=== PATIENT | female | born 1950 | race Caucasian/White ===

== ENCOUNTER 2018-08-01 13:11 | Inpatient (IN) | payer MEDICARE, MEDICAID, SELFPAY ==
[2018-08-01] VITALS (14 sets, daily range): BP systolic 93–152; BP diastolic 30–113; PULSE 63–83; RESP 12–22; TEMP 36.4–37.3; O2SAT 94–100; BMI 47.9; BMI 46.9
--- NOTE | 2018-08-01 13:24 | EKG12_ITS ---
Test Reason : ILLNESS Blood Pressure : / mmHG Vent. Rate : 079 BPM Atrial Rate : 079 BPM P-R Int : 178 ms QRS Dur : 090 ms QT Int : 370 ms P-R-T Axes : 000 029 082 degrees QTc Int : 424 ms Atrial-paced rhythm Nonspecific ST and T wave abnormality Abnormal ECG Confirmed by WENCESLAO DOWNING, DEVORAH ([id number]), loan expeditor SELAM MOSES ([id number]) on 08/04/2018 11:42:45 AM Referred By: Misty Jane Confirmed By:DEVORAH BILLY MD
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
--- NOTE | 2018-08-01 13:35 | RAD_ITS ---
STUDY: X-RAY CHEST REASON FOR EXAM: Female, 68 years old. [place] TECHNIQUE: Single AP portable view of the chest. COMPARISON: 09/13/2016 FINDINGS: Stable appearance of a left subclavian pacemaker, EKG leads overlie the chest There are interstitial fibrotic changes of the lungs. There is no demonstrated pleural abnormality. Normal size heart. Normal mediastinum and yohannes. Normal visualized pulmonary arteries. There is atherosclerotic calcification of the aortic arch with tortuosity. There are diffuse degenerative changes of the visualized thoracic spine. 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 RAD/Chest 1 View (Portable) IMPRESSION: Degenerative changes, as described above. No demonstrated acute cardiopulmonary process. No interval change Electronically Signed: Marcus Sy MD at 13:56 EDT , Service support ,
[2018-08-01 13:49] LABS: Absolute Lymphocyte Count 0.56 X10^3/ul (0.83-4.51); Absolute Neutrophil Count 6.7 X10^3/uL (2.0-7.7); Basophil# 0.02 X10^3/uL; Basophil% 0.3 % (0-1); Eosinophil# 0.19 X10^3/uL; Eosinophils% 2.4 % (0-5); Hematocrit 30.3 % (37-47); Hemoglobin 9.4 g/dl (12.0-15.0); Lymphocyte # 0.56 X10^3/ul (4.0); Mean Corpuscular Hgb 30.8 pg (27.0-32.0); Mean Corpuscular Volume 99.3 fL (81-99); Mean Platelet Vol. 10.3 fl (6.2-12.0); Monocyte# 0.46 X10^3/uL; Monocyte% 5.8 % (0-10); Neutrophil # 6.72 X10^3/uL (2.7-7.7); Neutrophil % 84.4 % (47-70); Platelet Count 173 K/mm3 (150-450); RBC Distribution Width SD 57.7 fl (35.1-43.9); Red Blood Count 3.05 M/mm3 (4.2-5.4)
[2018-08-01 13:50] LABS: Differential Indicated SCAN CRITERIA MET; POSITIVE COUNT NO; POSITIVE DIFFERENTIAL YES; POSITIVE MORPHOLOGY NO
[2018-08-01 13:56] LABS: International Normalized Ratio 1.9; Prothrombin Time (Protime)PT. 21.6 SECONDS (11.7-14.9)
[2018-08-01 14:03] LABS: ALB/GLOB Ratio 0.6 RATIO (0.9-2.4); AST(SGOT) 189 U/L (15-37); Alanine Aminotransfer ALT/SGPT 152 U/L (13-56); Albumin, Serum 2.6 g/dL (3.2-5.0); Alkaline Phosphatase 460 U/L (45-117); Anion Gap 7 (5-15); BUN 47 mg/dL (7-18); BUN/Creat Ratio 13.8 RATIO (10-20); Calcium,Total 9.1 mg/dL (8.5-10.1); Chloride 98 mmol/L (98-107); Creatinine, Serum 3.41 mg/dL (0.55-1.02); EST Glomerular Filtration Rate 14 mL/min (>60); Est Glom Filt Rate - Afr Amer 17 mL/min (>60); Globulin 4.4 g/dL (2.2-4.2); Glucose 215 mg/dL (74-106); Potassium 4.1 mmol/L (3.5-5.1); Sodium Level 135 mmol/L (136-145)
[2018-08-01 14:11] LABS: Mucous, Urine 0 SEEN /hpf (<or=2+); Squamous Epithelial Cells - UA 0 SEEN /hpf (5-10)
[2018-08-01 14:14] LABS: Lactic Acid 1.4 mmol/L (0.4-2.0)
[2018-08-01 14:16] LABS: Color, Urine Yellow (Yellow); Glucose, Dipstick 250 mg/dl (Normal); Ketone-Dipstick 5 mg/dl (Negative); Leukocyte Esterase-Dipstick 25 /ul (Negative); Nitrite-Dipstick Negative (Negative); Occult Blood-Urine 50 /ul (Negative); Protein-Dipstick 500 mg/dl (Negative); Urine Bilirubin Dipstick Negative (Negative); Urine Clarity Sl. Cloudy (Clear); Urine Urobilinogen Normal (Normal)
[2018-08-01 14:16] LABS: Base Excess 2 mmol/L (-2 to +2); Bicarbonate 28.3 mmol/L (22-26); Blood Gas Specimen Type ART; O2 Delivery Device Room Air; PO2 38 mmHG (75-100); SITE L Brachial; SO2 63 % (95-99); Time Given 1403; Total Carbon Dioxide 30 mmol/L; pCO2 58.9 mmHg (35-45); pH 7.29 (7.35-7.45)
[2018-08-01 14:31] LABS: Red Blood Cells-Urine 0-5 SEEN /hpf (0-5); White Blood Cells 0-5 SEEN /hpf (0-5)
[2018-08-01 14:32] LABS: Amorphous Sediment 2+; Bacteria 2+ /hpf (None Seen)
[2018-08-01 14:46] LABS: Base Excess 2 mmol/L (-2 to +2); Bicarbonate 28.3 mmol/L (22-26); Blood Gas Specimen Type ART; O2 Delivery Device Nasal Can; PO2 89 mmHG (75-100); SITE L Radial; SO2 95 % (95-99); Time Given 1439; Total Carbon Dioxide 30 mmol/L; pCO2 58.3 mmHg (35-45)
[2018-08-01] MEDS: Ceftriaxone 1 GM/50 ML BAG IV (15:58)
--- NOTE | 2018-08-01 16:18 | PCM.HP.STD ---
Problem List (1) Acute respiratory failure with hypoxia and hypercapnia Status: Acute (2) Anemia in chronic illness Status: Chronic (3) Liver transplant recipient Status: Chronic (4) COPD exacerbation Status: Acute (5) ESRD (end stage renal disease) on dialysis Status: Chronic (6) Abnormal nuclear stress test Status: Resolved (7) Aortic ejection murmur Status: Chronic History of Present Illness Date of Admission: 08/01/18 Chief Complaint: Lethargy. The patient is a 68 year old F who presents to the Emergency Room from SNF due to lethargy. Patient wearing BiPAP during assessment and HPI from patient is limited. at bedside reports he was visiting patient today and she was very lethargic and her head Falling over into her lunch tray. He reports she was recently hospitalized at outside facility due to too much fluid and low oxygen level. Patient denies urinary symptoms. Patient complains of increased shortness of breath and cough. She currently denies pain or other complaints. Per outside records, patient was discharged 07/14/[address] [facility] where she was treated for acute on chronic hypoxic respiratory failure secondary to volume overload and COPD exacerbation, elevated troponin. Her other past medical history includes end-stage renal disease on hemodialysis, tobacco dependence, hypertension, hyperlipidemia, type 2 diabetes mellitus, chronic hypoxic respiratory failure, status post liver transplant, morbid obesity, GERD, paroxysmal atrial fibrillation, depression, hypothyroidism, status post pacemaker placement. Past Medical History Past Medical History (Chronic Problems): Chronic Problems Anemia in chronic illness (Chronic) Liver transplant recipient (Chronic) ESRD (end stage renal disease) on dialysis (Chronic) Aortic ejection murmur (Chronic) Allergies aspirin Adverse Reaction (Verified 08/01/18 13:12) Nausea Home Medications: Ambulatory Orders Medication Instructions Recorded Acetaminophen 2 tab PO Q6H PRN 08/01/18 Albuterol IH (ProAir) [Proair Hfa 2 puff INHALATION Q4H PRN PRN 08/01/18 (SP)Vent Pts] Atorvastatin Calcium [Lipitor] 10 mg PO DAILY 08/01/18 B Complex W-C No.20/Folic Acid 1 capsule PO DAILY 08/01/18 [Virt-Caps Softgel] Bisacodyl [Dulcolax] 10 mg RECTAL Q8H PRN 08/01/18 Calcium Acetate 2 capsule PO DAILY 08/01/18 Calcium Carb/Magnesium Hydrox 1 - 2 tab PO 4X/DAY PRN 08/01/18 [Antacid Chewable Tablet] Cholecalciferol (VIT D3) [Vitamin 1,000 unit PO DAILY 08/01/18 D] Dextrose [Glutose 15] 1 applicatio PO PRN PRN 08/01/18 DiphenhydrAMINE [Benadryl] 0.5 tab PO Q6H PRN 08/01/18 Docusate Sodium [Colace] 100 mg PO BID 08/01/18 Escitalopram Oxalate [Lexapro] 5 mg PO QHS 08/01/18 Fexofenadine HCl 60 mg PO QHS 08/01/18 Furosemide [Lasix] 40 mg PO BID 08/01/18 Gabapentin [Neurontin] 300 mg PO BID 08/01/18 Gabapentin [Neurontin] 400 mg PO QHS 08/01/18 Glucagon,Human Recombinant 1 dose SQ PRN PRN 08/01/18 [Glucagon Emergency Kit] Insulin Aspart [Novolog Flexpen 8 units SC BIDCM 08/01/18 ([facility])] Insulin Detemir [Levemir] 17 unit SQ QHS 08/01/18 Ipratropium/Albuterol Sulfate 3 ml INHALATION Q4H.RT PRN 08/01/18 [Duoneb] Levothyroxine Sodium 200 mcg PO DAILY 08/01/18 Lidocaine/Prilocaine [Agoneaze 1 each TP TUTA 08/01/18 2.5%-2.5% Cream Dress] Loratadine 10 mg PO DAILY 08/01/18 Melatonin 3 mg PO QHS 08/01/18 Midodrine HCl 10 mg PO TUTHSA 08/01/18 Multivitamin [Multivitamins] 1 each PO DAILY 08/01/18 Nicotine [Nicotine Patch] 1 each TD DAILY 08/01/18 Nystatin [Nyamyc] 100,000 units TP BID 08/01/18 Ondansetron [Zofran Odt] 4 mg PO Q6H PRN PRN 08/01/18 Oxycodone HCl 5 mg PO 4X/DAY 08/01/18 Pantoprazole Sodium 40 mg PO LUNCH 08/01/18 Paroxetine [Paxil] 10 mg PO DAILY 08/01/18 Polyethylene Glycol 3350 [Clearlax] 17 gm PO DAILY PRN 08/01/18 Senna [Senokot] 2 tablet PO DAILY 08/01/18 Warfarin [Coumadin ([facility])] 1 mg PO MOTUWETHFR 08/01/18 Warfarin [Coumadin ([facility])] 3 mg PO SUSA 08/01/18 Surgical History: appendectomy, cholecystectomy, hysterectomy, - - Fistula placement Psychiatric History: Depression WOOD BORER History: No pertinent WOOD BORER history Lives: Shelter Smoking Status: Current every day smoker Alcohol: None - Per Drugs: None - *Family History Maternal History Items: - - Patient denies known maternal medical history including cardiac history. Paternal History Items: - - Denies known paternal medical history including cardiac history. Review of Systems Constitutional: Reports: Fatigue, - - Lethargy. Denies: Chills, Fever, Weight Change HEENT: Denies: Head Aches, Sinus Congestion, Sinus Drainage Cardiovascular: Denies: Chest Pain, Edema, Palpitations, Syncope Respiratory: Reports: Cough, Shortness of Breath. Denies: Sputum production Gastrointestinal: Denies: Abdominal Pain, Nausea, Vomiting Genitourinary: Denies: Dysuria Musculoskeletal: Denies: Joint Pain, Joint Tenderness Skin: Denies: Rash, Wounds Neurological: Denies: Numbness, Tingling, Focal weakness Psychiatric: Reports: Depression Hematologic/ Lymphatic: Denies: Easy Bruising, Easy Bleeding VTE Information - Inpt Only VTE Present on Admission: No VTE Mechan Device Prophylaxis: None VTE Pharm Prophylaxis ordered?: Yes Patient Problems: Active and Suspected Problems Acute respiratory failure with hypoxia and hypercapnia (Acute) COPD exacerbation (Acute) - Physical Exam General: Alert, Cooperative HEENT: Atraumatic, PERRLA, EOMI, Normocephalic Oral: Dry Mucosa Neck: Supple, No JVD, Negative Carotid Bruits Lungs: Diminished, Rhonchi, Wheezes Cardiovascular: Regular rate, Regular Rhythm, Normal S1, Normal S2, Murmur Abdomen: Bowel Sounds Present, Soft, Non Tender, Non-Distended, Obese Extremities: No clubbing, No cyanosis, No edema, Capillary Refill Less than 3 Seconds Skin: No rashes, No breakdown Musculoskeletal: No Tenderness to Palpation of Joints or Extremities Neurological: Cranial nerves II-XII grossly intact, Neuro grossly intact Psych/Mental Status: Normal Affect, Appropriate Vital Signs Temp Pulse Resp BP Pulse Ox 98.3 F 76 16 106/41 L 100 08/01/18 13:19 08/01/18 15:14 08/01/18 15:14 08/01/18 15:14 08/01/18 15:14 Oxygen Delivery Method Bi-pap Weight: 245 lb 13.047 oz Body Mass Index (BMI) 47.9 Laboratory Tests Past 24 Hrs 08/01/18 08/01/18 08/01/18 13:30 13:30 13:30 WBC 8.0 RBC 3.05 L Hgb 9.4 L Hct 30.3 L MCV 99.3 H MCH 30.8 MCHC 31.0 L RDW 16.0 H RDW Differential 57.7 H Plt Count 173 MPV 10.3 Immature Gran % (Auto) 0.100 Neut % (Auto) 84.4 H Lymph % (Auto) 7.0 L [place] % (Auto) 5.8 Eos % (Auto) 2.4 Baso % (Auto) 0.3 Absolute Neuts (auto) 6.7 Absolute Lymphs (auto) 0.56 L Total Counted Not Reportable Differential Comment COMMENT PT 21.6 H INR 1.9 Specimen Type Sample Site pH Bicarbonate Actual POC Total CO2 Base Excess O2 Saturation ABG pCO2 ABG pO2 Arash Test O2 Delivery Device Liter Flow Blood Gas Notified Whom Blood Gas Notified Time Sodium 135 L Potassium 4.1 Chloride 98 Carbon Dioxide 30.0 Anion Gap 7 BUN 47 H Creatinine 3.41 H Estim Creat Clear Calc 11.50 Est GFR (MDRD) Af Amer 17 L Est GFR (MDRD) Non-Af 14 L BUN/Creatinine Ratio 13.8 Glucose 215 H Lactic Acid Calcium 9.1 Total Bilirubin 0.30 AST 189 H ALT 152 H Alkaline Phosphatase 460 H Ammonia Troponin I 0.165 H B-Natriuretic Peptide Total Protein 7.0 Albumin 2.6 L Globulin 4.4 H Albumin/Globulin Ratio 0.6 L Urine Color Urine Clarity Urine pH Ur Specific [place] Urine Protein Urine Glucose (UA) Urine Ketones Urine Occult Blood Urine Nitrite Urine Bilirubin Urine Urobilinogen Ur Leukocyte Esterase Urine RBC Urine WBC Ur Squamous Epith Cells Amorphous Sediment Urine Bacteria Urine Mucus 08/01/18 08/01/18 08/01/18 13:30 13:30 13:50 WBC RBC Hgb Hct MCV MCH MCHC RDW RDW Differential Plt Count MPV Immature Gran % (Auto) Neut % (Auto) Lymph % (Auto) [place] % (Auto) Eos % (Auto) Baso % (Auto) Absolute Neuts (auto) Absolute Lymphs (auto) Total Counted Differential Comment PT INR Specimen Type Sample Site pH Bicarbonate Actual POC Total CO2 Base Excess O2 Saturation ABG pCO2 ABG pO2 Arash Test O2 Delivery Device Liter Flow Blood Gas Notified Whom Blood Gas Notified Time Sodium Potassium Chloride Carbon Dioxide Anion Gap BUN Creatinine Estim Creat Clear Calc Est GFR (MDRD) Af Amer Est GFR (MDRD) Non-Af BUN/Creatinine Ratio Glucose Lactic Acid 1.4 Calcium Total Bilirubin AST ALT Alkaline Phosphatase Ammonia Troponin I B-Natriuretic Peptide 475.0 H Total Protein Albumin Globulin Albumin/Globulin Ratio Urine Color Yellow Urine Clarity Sl. Cloudy Urine pH 7.0 Ur Specific [place] 1.010 Urine Protein 500 H Urine Glucose (UA) 250 H Urine Ketones 5 H Urine Occult Blood 50 H Urine Nitrite Negative Urine Bilirubin Negative Urine Urobilinogen Normal Ur Leukocyte Esterase 25 H Urine RBC 0-5 SEEN Urine WBC 0-5 SEEN Ur Squamous Epith Cells 0 SEEN Amorphous Sediment 2+ Urine Bacteria 2+ Urine Mucus 0 SEEN 08/01/18 08/01/18 08/01/18 14:05 14:42 15:55 WBC RBC Hgb Hct MCV MCH MCHC RDW RDW Differential Plt Count MPV Immature Gran % (Auto) Neut % (Auto) Lymph % (Auto) [place] % (Auto) Eos % (Auto) Baso % (Auto) Absolute Neuts (auto) Absolute Lymphs (auto) Total Counted Differential Comment PT INR Specimen Type ART ART Sample Site L Brachial L Radial pH 7.29 L 7.30 L Bicarbonate Actual 28.3 H 28.3 H POC Total CO2 30 30 Base Excess 2 2 O2 Saturation 63 L 95 ABG pCO2 58.9 H 58.3 H ABG pO2 38 L* 89 Arash Test NA O2 Delivery Device Room Air Nasal Can Liter Flow 3.0 Blood Gas Notified Whom ED MD ED Blood Gas Notified Time 1403 1439 Sodium Potassium Chloride Carbon Dioxide Anion Gap BUN Creatinine Estim Creat Clear Calc Est GFR (MDRD) Af Amer Est GFR (MDRD) Non-Af BUN/Creatinine Ratio Glucose Lactic Acid Calcium Total Bilirubin AST ALT Alkaline Phosphatase Ammonia Pending Troponin I B-Natriuretic Peptide Total Protein Albumin Globulin Albumin/Globulin Ratio Urine Color Urine Clarity Urine pH Ur Specific [place] Urine Protein Urine Glucose (UA) Urine Ketones Urine Occult Blood Urine Nitrite Urine Bilirubin Urine Urobilinogen Ur Leukocyte Esterase Urine RBC Urine WBC Ur Squamous Epith Cells Amorphous Sediment Urine Bacteria Urine Mucus Assessment/Plan All Active Problems Acute respiratory failure with hypoxia and hypercapnia (Acute) COPD exacerbation (Acute) Abnormal nuclear stress test (Resolved) 1. Acute on chronic hypoxic and hypercapnic respiratory failure secondary to suspected COPD exacerbation/Acute bronchitis- CXR without acute process. IV Solu-Medrol. Albuterol and DuoNeb aerosol. Continue BiPAP as tolerated. Continue supplement oxygen to maintain O2 sat above 90%. Send sputum for culture. Check respiratory panel. 2. Possible UTI- Urinalysis mildly abnormal. Continue IV Rocephin. Follow culture. 3. Elevated troponin-suspect demand ischemia secondary to #1. Patient's troponin were elevated at [facility] during recent admission as well. She had a cardiac catheterization in September 2016 which showed nonobstructive coronary arteries. Trend enzymes. Repeat EKG in a.m. 4. End-stage renal disease on hemodialysis- consult nephrology. Continue dialysis regimen. 5. Tobacco dependence-encourage smoking cessation. Nicotine patch. 6. Hypertension-stable, not on regimen. 7. Hyperlipidemia-continue statin. 8. Type 2 diabetes [id number] ACHS with sliding scale insulin. Continue home Levemir and NovoLog regimen. 9. Status post liver transplant-elevated liver profile. Unclear baseline. Trend CMP. Ammonia level within normal limits. 10. Morbid obesity-encourage diet lifestyle modifications. Nutrition consult. 11. GERD-continue PPI. 12. Paroxysmal atrial fibrillation-currently atrial paced. Continue Coumadin. 13. Status post pacemaker 14. Hypothyroidism-continue Synthroid regimen. Check TSH. 15. Depression-continue home Paxil, Lexapro regimen. 16. Anemia of chronic disease-at baseline, trend CBC. DVT prophylaxis-Coumadin CODE STATUS: DNR CCA This patient was seen by Kita Lizarraga NP-C under the supervision of Dr. Jane.
[2018-08-01 17:41] LABS: Magnesium 2.3 mg/dL (1.6-2.6)
[2018-08-01] MEDS: Insulin Lispro 100 UNIT/ML INSULN.PEN 8 UNIT SC (18:44)
[2018-08-01] MEDS: oxyCODONE 5 MG Tablet PO (18:45)
[2018-08-01] MEDS: Furosemide 40 MG Tablet PO (18:45)
[2018-08-01 19:01] LABS: Bedside Glucose 195 mg/dL (70-110)
[2018-08-01] MEDS: Ipratropium/Albuterol Sulfate 3 ML AMPUL.NEB INHALATION (19:34)
[2018-08-01] MEDS: Atorvastatin Calcium 10 MG Tablet PO (21:39)
[2018-08-01] MEDS: Nystatin Powder 15gm Bottle 1 APPLIC TOPICAL (21:39)
[2018-08-01 21:50] LABS: Bedside Glucose 154 mg/dL (70-110)
[2018-08-01 22:30] LABS: Bedside Glucose 162 mg/dL (70-110)
[2018-08-01 22:46] LABS: Base Excess 3 mmol/L (-2 to +2); Bicarbonate 29.2 mmol/L (22-26); Blood Gas Specimen Type ART; EPAP 6; FI02 30; IPAP 18; PO2 74 mmHG (75-100); RR 14; SITE L Brachial; SO2 92 % (95-99); Total Carbon Dioxide 31 mmol/L; pCO2 60.5 mmHg (35-45); pH 7.29 (7.35-7.45)
[2018-08-02] VITALS (18 sets, daily range): BP systolic 127–149; BP diastolic 63–101; PULSE 68–85; RESP 12–18; TEMP 36.7–37.5; O2SAT 94–100
[2018-08-02] MEDS: 0.9% NaCl Peripheral Flush Adult/Peds IV ×5 (05:18→12:04)
[2018-08-02] MEDS: Levothyroxine 100 MCG Tablet 200 MCG PO (05:25)
--- NOTE | 2018-08-02 05:55 | EKG12_ITS ---
Test Reason : AM EKG Blood Pressure : / mmHG Vent. Rate : 067 BPM Atrial Rate : 067 BPM P-R Int : 190 ms QRS Dur : 096 ms QT Int : 404 ms P-R-T Axes : 055 032 110 degrees QTc Int : 426 ms Atrial-paced rhythm ST & T wave abnormality, consider lateral ischemia Abnormal ECG Confirmed by WENCESLAO DOWNING, DEVORAH ([id number]), food expeditor SELAM MOSES ([id number]) on 08/05/2018 11:34:51 AM Referred By: Misty Jane Confirmed By:DEVORAH BILLY MD
--- NOTE | 2018-08-02 05:55 | RAD_ITS ---
STUDY: X-RAY CHEST REASON FOR EXAM: Female, 68 years old. Short of breath TECHNIQUE: AP and lateral chest COMPARISON: 08/01/2018 FINDINGS: There is mild prominence of the pulmonary vascularity. There is a cardiac pacemaker. There are small pleural effusions. There are surgical clips overlying the right lateral chest. There is mild cardiomegaly. Normal mediastinum and yohannes. . Normal visualized aortic arch and descending thoracic aorta. Normal visualized thoracic spine. There is an old nonunion fracture of the right humerus. There is no demonstrated abnormality of the visualized soft tissue structures of the upper abdomen. RAD/Chest PA and Lateral IMPRESSION: Stable mild cardiomegaly, mild pulmonary venous congestion and small pleural effusions On nonunion fracture proximal right humerus Electronically Signed: Placido Medina, at 16:04 EDT Tel , Service support ,
[2018-08-02 06:51] LABS: Bedside Glucose 274 mg/dL (70-110)
[2018-08-02] MEDS: Ipratropium/Albuterol Sulfate 3 ML AMPUL.NEB INHALATION ×4 (07:32→22:27)
[2018-08-02 08:06] LABS: Prothrombin Time (Protime)PT. 22.5 SECONDS (11.7-14.9)
[2018-08-02 08:22] LABS: AST(SGOT) 271 U/L (15-37); Alanine Aminotransfer ALT/SGPT 172 U/L (13-56); Albumin, Serum 2.4 g/dL (3.2-5.0); Alkaline Phosphatase 708 U/L (45-117); Bilirubin, Direct 0.09 mg/dL (0.00-0.30); Globulin 4.5 g/dL (2.2-4.2); Protein, Total 6.9 g/dL (6.4-8.2)
[2018-08-02] MEDS: Insulin Lispro 100 UNIT/ML INSULN.PEN 8 UNIT SC ×2 (09:52→16:42)
[2018-08-02] MEDS: Insulin Lispro 100 UNIT/ML INSULN.PEN SC ×4 (09:52→22:25)
[2018-08-02] MEDS: Multivitamins,Therapeutic Tablet 1 TABLET PO (09:56)
[2018-08-02] MEDS: Docusate Sodium 100 MG Capsule PO ×2 (09:57→22:21)
[2018-08-02] MEDS: Loratadine 10 MG Tablet PO (09:57)
[2018-08-02] MEDS: Calcium Acetate 667 MG Capsule 1334 MG PO ×3 (09:57→16:46)
[2018-08-02] MEDS: PARoxetine 10 MG Tablet PO (09:58)
[2018-08-02] MEDS: Senna Tablet 2 TABLET PO (09:58)
[2018-08-02] MEDS: Furosemide 40 MG Tablet PO ×2 (09:58→16:47)
[2018-08-02 11:51] LABS: Bedside Glucose 335 mg/dL (70-110)
[2018-08-02] MEDS: Ceftriaxone 1 GM/50 ML BAG IV (12:04)
[2018-08-02] MEDS: Pantoprazole Sodium 40 MG Tablet PO (12:04)
[2018-08-02] MEDS: Nystatin Powder 15gm Bottle 1 APPLIC TOPICAL ×2 (12:05→22:26)
[2018-08-02] MEDS: Acetaminophen 325 MG Tablet 650 MG PO ×2 (14:04→20:55)
[2018-08-02] MEDS: Gabapentin 300 MG Capsule PO (14:05)
--- NOTE | 2018-08-02 15:23 | PCM.PROGNOTE ---
<Kita Lizarraga - Last Filed: 08/02/18 15:33> Patient Problems: Active and Suspected Problems Acute respiratory failure with hypoxia and hypercapnia (Acute) COPD exacerbation (Acute) Subjective: Patient seen and examined. Mental status improved although nurse reports intermittent lethargy. at bedside. Patient reports improvement in breathing. No other current complaints. - Physical Exam General: Alert, Oriented x3, Cooperative HEENT: Atraumatic, PERRLA, EOMI, Normocephalic Neck: Supple, No JVD, Negative Carotid Bruits Lungs: Clear to auscultation, Diminished Cardiovascular: Regular rate, Regular Rhythm, Normal S1, Normal S2, No murmurs Abdomen: Bowel Sounds Present, Soft, Non Tender, Non-Distended, Obese Extremities: No clubbing, No cyanosis, No edema, Capillary Refill Less than 3 Seconds Skin: No rashes, No breakdown Musculoskeletal: No Tenderness to Palpation of Joints or Extremities Neurological: Cranial nerves II-XII grossly intact, Neuro grossly intact Psych/Mental Status: Normal Affect, Appropriate Vital Signs Temp Pulse Resp BP Pulse Ox 99.5 F H 74 16 127/68 H 98 08/02/18 09:42 08/02/18 11:22 08/02/18 11:22 08/02/18 09:42 08/02/18 11:22 Oxygen Flow Rate (L/min) 2 Oxygen Delivery Method Nasal Cannula Weight: 238 lb 15.697 oz Body Mass Index (BMI) 46.9 Intake and Output for Last 24 Hours 07/31/18 08/01/18 08/02/18 23:59 23:59 23:59 Intake Total 80 / 80 510 / 510 Output Total 0 / 0 Balance 80 / 80 510 / 510 Microbiology Past 72 Hours 08/01/18 19:35 Respiratory Panel (PCR) - Final Mucosa - Nasopharyngeal Laboratory Tests Past 24 Hrs 08/01/18 08/01/18 08/01/18 13:30 15:55 17:44 PT INR Specimen Type Sample Site pH Bicarbonate Actual POC Total CO2 Base Excess O2 Saturation O2 % ABG pCO2 ABG pO2 Arash Test Respiration Rate O2 Delivery Device EPAP IPAP Blood Gas Notified Whom Magnesium 2.3 Total Bilirubin Direct Bilirubin AST ALT Alkaline Phosphatase Ammonia 17.0 Troponin I 0.194 H Total Protein Albumin Globulin 04/26/19 04/26/19 04/27/19 20:05 22:42 07:22 PT 22.5 H INR 2.0 Specimen Type ART Sample Site L Brachial pH 7.29 L Bicarbonate Actual 29.2 H POC Total CO2 31 Base Excess 3 H O2 Saturation 92 L O2 % 30 ABG pCO2 60.5 H ABG pO2 74 L Arash Test NA Respiration Rate 14 O2 Delivery Device Bi / C PAP EPAP 6 IPAP 18 Blood Gas Notified Whom FRANCES DOWNING Magnesium Total Bilirubin Direct Bilirubin AST ALT Alkaline Phosphatase Ammonia Troponin I 0.174 H Total Protein Albumin Globulin 08/02/18 08/02/18 07:22 10:12 PT INR Specimen Type Sample Site pH Bicarbonate Actual POC Total CO2 Base Excess O2 Saturation O2 % ABG pCO2 ABG pO2 Arash Test Respiration Rate O2 Delivery Device EPAP IPAP Blood Gas Notified Whom Magnesium Total Bilirubin 0.30 Direct Bilirubin 0.09 AST 271 H ALT 172 H Alkaline Phosphatase 708 H Ammonia 14.0 Troponin I Total Protein 6.9 Albumin 2.4 L Globulin 4.5 H POC Glucose 08/02/18 08/02/18 08/01/18 11:43 06:39 22:22 POC Glucose 335 H 274 H 162 H 08/01/18 08/01/18 21:29 18:34 POC Glucose 154 H 195 H Medical Necessity - Tobacco Use Smoking Status: Current every day smoker Assessment/Plan All Active Problems Acute respiratory failure with hypoxia and hypercapnia (Acute) COPD exacerbation (Acute) Abnormal nuclear stress test (Resolved) 1. Acute on chronic hypoxic and hypercapnic respiratory failure secondary to suspected COPD exacerbation/Acute bronchitis with associated acute metabolic encephalopathy- CXR without acute process. IV Solu-Medrol. Albuterol and DuoNeb aerosol. Continue BiPAP as tolerated. Continue supplement oxygen to maintain O2 sat above 90%. Send sputum for culture. Respiratory panel negative. Repeat chest x-ray pending. Hold sedating regimen given continued intermittent lethargy. 2. Possible UTI- Urinalysis mildly abnormal. Continue IV Rocephin. Urine culture pending. 3. Elevated troponin-suspect demand ischemia secondary to #1. Patient's troponin were elevated at [facility] during recent admission as well. She had a cardiac catheterization in September 2016 which showed nonobstructive coronary arteries. EKG without ST-T changes. Troponin did not trend. 4. End-stage renal disease on hemodialysis- consult nephrology. Continue dialysis regimen. T,R, Sat. 5. Elevated liver profile-ammonia level within normal limits. Liver profile trending upwards. Obtain liver ultrasound. 6. Hypertension-stable, not on regimen. 7. Hyperlipidemia-continue statin. 8. Type 2 diabetes [id number] ACHS with sliding scale insulin. Continue home Levemir and NovoLog regimen. 9. Tobacco dependence-encourage smoking cessation. Nicotine patch. 10. Morbid obesity-encourage diet lifestyle modifications. Nutrition consult. 11. GERD-continue PPI. 12. Paroxysmal atrial fibrillation-currently atrial paced. Continue Coumadin. 13. Status post pacemaker 14. Hypothyroidism-continue Synthroid regimen. Check TSH. 15. Depression-continue home Paxil, Lexapro regimen. 16. Anemia of chronic disease-at baseline, trend CBC. DVT prophylaxis-Coumadin CODE STATUS: DNR CCA This patient was seen by Kita Lizarraga NP-C under the supervision of Dr. Bahena. <Jenifer Bahena - Last Filed: 08/02/18 15:43> - Physical Exam Vital Signs Temp Pulse Resp BP Pulse Ox 99.5 F H 78 16 127/68 H 94 08/02/18 09:42 08/02/18 15:25 08/02/18 15:25 08/02/18 09:42 08/02/18 15:25 Oxygen Flow Rate (L/min) 2 Oxygen Delivery Method Nasal Cannula Weight: 238 lb 15.697 oz Body Mass Index (BMI) 46.9 Intake and Output for Last 24 Hours 07/31/18 08/01/18 08/02/18 23:59 23:59 23:59 Intake Total 80 / 80 510 / 510 Output Total 0 / 0 Balance 80 / 80 510 / 510 Microbiology Past 72 Hours 08/01/18 19:35 Respiratory Panel (PCR) - Final Mucosa - Nasopharyngeal Laboratory Tests Past 24 Hrs 08/01/18 08/01/18 08/01/18 13:30 15:55 17:44 PT INR Specimen Type Sample Site pH Bicarbonate Actual POC Total CO2 Base Excess O2 Saturation O2 % ABG pCO2 ABG pO2 Arash Test Respiration Rate O2 Delivery Device EPAP IPAP Blood Gas Notified Whom Magnesium 2.3 Total Bilirubin Direct Bilirubin AST ALT Alkaline Phosphatase Ammonia 17.0 Troponin I 0.194 H Total Protein Albumin Globulin 08/01/18 08/01/18 08/02/18 20:05 22:42 07:22 PT 22.5 H INR 2.0 Specimen Type ART Sample Site L Brachial pH 7.29 L Bicarbonate Actual 29.2 H POC Total CO2 31 Base Excess 3 H O2 Saturation 92 L O2 % 30 ABG pCO2 60.5 H ABG pO2 74 L Arash Test NA Respiration Rate 14 O2 Delivery Device Bi / C PAP EPAP 6 IPAP 18 Blood Gas Notified Whom FRANCES DOWNING Magnesium Total Bilirubin Direct Bilirubin AST ALT Alkaline Phosphatase Ammonia Troponin I 0.174 H Total Protein Albumin Globulin 08/02/18 08/02/18 07:22 10:12 PT INR Specimen Type Sample Site pH Bicarbonate Actual POC Total CO2 Base Excess O2 Saturation O2 % ABG pCO2 ABG pO2 Arash Test Respiration Rate O2 Delivery Device EPAP IPAP Blood Gas Notified Whom Magnesium Total Bilirubin 0.30 Direct Bilirubin 0.09 AST 271 H ALT 172 H Alkaline Phosphatase 708 H Ammonia 14.0 Troponin I Total Protein 6.9 Albumin 2.4 L Globulin 4.5 H POC Glucose 08/02/18 08/02/18 08/01/18 11:43 06:39 22:22 POC Glucose 335 H 274 H 162 H 08/01/18 08/01/18 21:29 18:34 POC Glucose 154 H 195 H Assessment/Plan Patient seen by Kita Lizarraga NP-Purnima under my supervision Patient is a 68-year-old female was [facility] her [facility] by the ED with complaint of lethargy. According to her she had recently been admitted at another hospital on account of low oxygen level and to much fluid. She also had increased shortness of breath and cough on admission. She was discharged from [facility] on 07/14/2018 after being admitted for acute on chronic hypoxic respiratory failure due to COPD exacerbation, elevated troponin with fluid volume overload. She has been managed for acute on chronic hypoxic and hypercapnic respiratory failure due to COPD exacerbation. She was started on IV Solu-Medrol and breathing treatments and put on BiPAP. ABG done showed pH of 7.29 with elevated CO2. Patient seen and examined this morning. She was lethargic but was able to answer all my questions. She was eating breakfast. She denies any fever chills, lightheadedness or dizziness, chest pain, diarrhea vomiting. Review of systems otherwise negative. o/e: Vital Signs Height 4 ft 11.8 in Weight: 238 lb 15.697 oz Weight in Pounds 239.0 lbs Pulse Ox 94 Temperature 99.5 F Pulse Rate 78 Respiratory Rate 16 Blood Pressure 127/68 Blood Pressure Position Semi-Fowlers General: Alert, Oriented x3, Cooperative, ,mildly lethargic HEENT: Atraumatic, PERRLA, EOMI, Normocephalic Neck: Supple, No JVD, Negative Carotid Bruits Lungs: Clear to auscultation, Diminished; on 2L of oxygen at time of review Cardiovascular: Regular rate, Regular Rhythm, Normal S1, Normal S2, No murmurs Abdomen: Bowel Sounds Present, Soft, Non Tender, Non-Distended, Obese Extremities: No clubbing, No cyanosis, No edema, Capillary Refill Less than 3 Seconds Skin: No rashes, No breakdown Musculoskeletal: No Tenderness to Palpation of Joints or Extremities Neurological: Cranial nerves II-XII grossly intact, Neuro grossly intact Psych/Mental Status: Normal Affect, Appropriate Plan is continue BiPAP as needed as needed. Continue supplement with oxygen to maintain saturation above 90%. BNP was elevated at 495 but in light of her incisional disease on hemodialysis, BNP is no very accurate. Continue with hemodialysis Saturdays. Liver enzymes were noted to be trending upwards but ammonia is within normal limits. Will obtain a liver ultrasound for further evaluation. Continue Rocephin for UTI. Urine culture pending. Continue p.o. Lasix 40 mg twice daily. Rest of management as per JOHN Saucedo's notes which I have reviewed and endorsed. Code Visit Inpatient E&M: 20846 Subs Hosp L3
--- NOTE | 2018-08-02 15:27 | PN_ITS ---
<Kita Lizarraga - Last Filed: 08/02/18 15:33> Patient Problems: Active and Suspected Problems Acute respiratory failure with hypoxia and hypercapnia (Acute) COPD exacerbation (Acute) Subjective: Patient seen and examined. Mental status improved although nurse reports intermittent lethargy. at bedside. Patient reports improvement in breathing. No other current complaints. - Physical Exam General: Alert, Oriented x3, Cooperative HEENT: Atraumatic, PERRLA, EOMI, Normocephalic Neck: Supple, No JVD, Negative Carotid Bruits Lungs: Clear to auscultation, Diminished Cardiovascular: Regular rate, Regular Rhythm, Normal S1, Normal S2, No murmurs Abdomen: Bowel Sounds Present, Soft, Non Tender, Non-Distended, Obese Extremities: No clubbing, No cyanosis, No edema, Capillary Refill Less than 3 Seconds Skin: No rashes, No breakdown Musculoskeletal: No Tenderness to Palpation of Joints or Extremities Neurological: Cranial nerves II-XII grossly intact, Neuro grossly intact Psych/Mental Status: Normal Affect, Appropriate Vital Signs Temp Pulse Resp BP Pulse Ox 99.5 F H 74 16 127/68 H 98 08/02/18 09:42 08/02/18 11:22 08/02/18 11:22 08/02/18 09:42 08/02/18 11:22 Oxygen Flow Rate (L/min) 2 Oxygen Delivery Method Nasal Cannula Weight: 238 lb 15.697 oz Body Mass Index (BMI) 46.9 Intake and Output for Last 24 Hours 07/31/18 08/01/18 08/02/18 23:59 23:59 23:59 Intake Total 80 / 80 510 / 510 Output Total 0 / 0 Balance 80 / 80 510 / 510 Microbiology Past 72 Hours 08/01/18 19:35 Respiratory Panel (PCR) - Final Mucosa - Nasopharyngeal Laboratory Tests Past 24 Hrs 08/01/18 08/01/18 08/01/18 13:30 15:55 17:44 PT INR Specimen Type Sample Site pH Bicarbonate Actual POC Total CO2 Base Excess O2 Saturation O2 % ABG pCO2 ABG pO2 Arash Test Respiration Rate O2 Delivery Device EPAP IPAP Blood Gas Notified Whom Magnesium 2.3 Total Bilirubin Direct Bilirubin AST ALT Alkaline Phosphatase Ammonia 17.0 Troponin I 0.194 H Total Protein Albumin Globulin 04/26/19 04/26/19 04/27/19 20:05 22:42 07:22 PT 22.5 H INR 2.0 Specimen Type ART Sample Site L Brachial pH 7.29 L Bicarbonate Actual 29.2 H POC Total CO2 31 Base Excess 3 H O2 Saturation 92 L O2 % 30 ABG pCO2 60.5 H ABG pO2 74 L Arash Test NA Respiration Rate 14 O2 Delivery Device Bi / C PAP EPAP 6 IPAP 18 Blood Gas Notified Whom FRANCES DOWNING Magnesium Total Bilirubin Direct Bilirubin AST ALT Alkaline Phosphatase Ammonia Troponin I 0.174 H Total Protein Albumin Globulin 08/02/18 08/02/18 07:22 10:12 PT INR Specimen Type Sample Site pH Bicarbonate Actual POC Total CO2 Base Excess O2 Saturation O2 % ABG pCO2 ABG pO2 Arash Test Respiration Rate O2 Delivery Device EPAP IPAP Blood Gas Notified Whom Magnesium Total Bilirubin 0.30 Direct Bilirubin 0.09 AST 271 H ALT 172 H Alkaline Phosphatase 708 H Ammonia 14.0 Troponin I Total Protein 6.9 Albumin 2.4 L Globulin 4.5 H POC Glucose 08/02/18 08/02/18 08/01/18 11:43 06:39 22:22 POC Glucose 335 H 274 H 162 H 08/01/18 08/01/18 21:29 18:34 POC Glucose 154 H 195 H Medical Necessity - Tobacco Use Smoking Status: Current every day smoker Assessment/Plan All Active Problems Acute respiratory failure with hypoxia and hypercapnia (Acute) COPD exacerbation (Acute) Abnormal nuclear stress test (Resolved) 1. Acute on chronic hypoxic and hypercapnic respiratory failure secondary to castro spected COPD exacerbation/Acute bronchitis with associated acute metabolic encephalopathy- CXR without acute process. IV Solu-Medrol. Albuterol and DuoNeb aerosol. Continue BiPAP as tolerated. Continue supplement oxygen to maintain O2 sat above 90%. Send sputum for culture. Respiratory panel negative. Repeat chest x-ray pending. Hold sedating regimen given continued intermittent lethargy. 2. Possible UTI- Urinalysis mildly abnormal. Continue IV Rocephin. Urine culture pending. 3. Elevated troponin-suspect demand ischemia secondary to #1. Patient's troponin were elevated at [facility] during recent admission as well. She had a cardiac catheterization in September 2016 which showed nonobstructive coronary arteries. EKG without ST-T changes. Troponin did not trend. 4. End-stage renal disease on hemodialysis- consult nephrology. Continue dialysis regimen. T,R, Sat. 5. Elevated liver profile-ammonia level within normal limits. Liver profile trending upwards. Obtain liver ultrasound. 6. Hypertension-stable, not on regimen. 7. Hyperlipidemia-continue statin. 8. Type 2 diabetes [id number] ACHS with sliding scale insulin. Continue home Levemir and NovoLog regimen. 9. Tobacco dependence-encourage smoking cessation. Nicotine patch. 10. Morbid obesity-encourage diet lifestyle modifications. Nutrition consult. 11. GERD-continue PPI. 12. Paroxysmal atrial fibrillation-currently atrial paced. Continue Coumadin. 13. Status post pacemaker 14. Hypothyroidism-continue Synthroid regimen. Check TSH. 15. Depression-continue home Paxil, Lexapro regimen. 16. Anemia of chronic disease-at baseline, trend CBC. DVT prophylaxis-Coumadin CODE STATUS: DNR CCA This patient was seen by Kita Lizarraga NP-C under the supervision of Dr. Bahena. <Jenifer Bahena - Last Filed: 08/02/18 15:43> - Physical Exam Vital Signs Temp Pulse Resp BP Pulse Ox 99.5 F H 78 16 127/68 H 94 08/02/18 09:42 08/02/18 15:25 08/02/18 15:25 08/02/18 09:42 08/02/18 15:25 Oxygen Flow Rate (L/min) 2 Oxygen Delivery Method Nasal Cannula Weight: 238 lb 15.697 oz Body Mass Index (BMI) 46.9 Intake and Output for Last 24 Hours 07/31/18 08/01/18 08/02/18 23:59 23:59 23:59 Intake Total 80 / 80 510 / 510 Output Total 0 / 0 Balance 80 / 80 510 / 510 Microbiology Past 72 Hours 08/01/18 19:35 Respiratory Panel (PCR) - Final Mucosa - Nasopharyngeal Laboratory Tests Past 24 Hrs 08/01/18 08/01/18 08/01/18 13:30 15:55 17:44 PT INR Specimen Type Sample Site pH Bicarbonate Actual POC Total CO2 Base Excess O2 Saturation O2 % ABG pCO2 ABG pO2 Arash Test Respiration Rate O2 Delivery Device EPAP IPAP Blood Gas Notified Whom Magnesium 2.3 Total Bilirubin Direct Bilirubin AST ALT Alkaline Phosphatase Ammonia 17.0 Troponin I 0.194 H Total Protein Albumin Globulin 08/01/18 08/01/18 08/02/18 20:05 22:42 07:22 PT 22.5 H INR 2.0 Specimen Type ART Sample Site L Brachial pH 7.29 L Bicarbonate Actual 29.2 H POC Total CO2 31 Base Excess 3 H O2 Saturation 92 L O2 % 30 ABG pCO2 60.5 H ABG pO2 74 L Arash Test NA Respiration Rate 14 O2 Delivery Device Bi / C PAP EPAP 6 IPAP 18 Blood Gas Notified Whom FRANCES DOWNING Magnesium Total Bilirubin Direct Bilirubin AST ALT Alkaline Phosphatase Ammonia Troponin I 0.174 H Total Protein Albumin Globulin 08/02/18 08/02/18 07:22 10:12 PT INR Specimen Type Sample Site pH Bicarbonate Actual POC Total CO2 Base Excess O2 Saturation O2 % ABG pCO2 ABG pO2 Arash Test Respiration Rate O2 Delivery Device EPAP IPAP Blood Gas Notified Whom Magnesium Total Bilirubin 0.30 Direct Bilirubin 0.09 AST 271 H ALT 172 H Alkaline Phosphatase 708 H Ammonia 14.0 Troponin I Total Protein 6.9 Albumin 2.4 L Globulin 4.5 H POC Glucose 08/02/18 08/02/18 08/01/18 11:43 06:39 22:22 POC Glucose 335 H 274 H 162 H 08/01/18 08/01/18 21:29 18:34 POC Glucose 154 H 195 H Assessment/Plan Patient seen by Kita LOPEZ under my supervision Patient is a 68-year-old female was admitted from her [facility] facility by the ED with complaint of lethargy. According to her she had recently been admitted at another hospital on account of low oxygen level and to much fluid. She also had increased shortness of breath and cough on admission. She was discharged from [facility] on 07/14/2018 after being admitted for acute on chronic hypoxic respiratory failure due to COPD exacerbation, elevated troponin with fluid volume overload. She has been managed for acute on chronic hypoxic and hypercapnic respiratory failure due to COPD exacerbation. She was started on IV Solu-Medrol and breathing treatments and put on BiPAP. ABG done showed pH of 7.29 with elevated CO2. Patient seen and examined this morning. She was lethargic but was able to ans wer all my questions. She was eating breakfast. She denies any fever chills, lightheadedness or dizziness, chest pain, diarrhea vomiting. Review of systems otherwise negative. o/e: Vital Signs Height 4 ft 11.8 in Weight: 238 lb 15.697 oz Weight in Pounds 239.0 lbs Pulse Ox 94 Temperature 99.5 F Pulse Rate 78 Respiratory Rate 16 Blood Pressure 127/68 Blood Pressure Position Semi-Fowlers General: Alert, Oriented x3, Cooperative, ,mildly lethargic HEENT: Atraumatic, PERRLA, EOMI, Normocephalic Neck: Supple, No JVD, Negative Carotid Bruits Lungs: Clear to auscultation, Diminished; on 2L of oxygen at time of review Cardiovascular: Regular rate, Regular Rhythm, Normal S1, Normal S2, No murmurs Abdomen: Bowel Sounds Present, Soft, Non Tender, Non-Distended, Obese Extremities: No clubbing, No cyanosis, No edema, Capillary Refill Less than 3 Seconds Skin: No rashes, No breakdown Musculoskeletal: No Tenderness to Palpation of Joints or Extremities Neurological: Cranial nerves II-XII grossly intact, Neuro grossly intact Psych/Mental Status: Normal Affect, Appropriate Plan is continue BiPAP as needed as needed. Continue supplement with oxygen to maintain saturation above 90%. BNP was elevated at 495 but in light of her incisional disease on hemodialysis, BNP is no very accurate. Continue with hemodialysis Saturdays. Liver enzymes were noted to be trending upwards but ammonia is within normal limits. Will obtain a liver ultrasound for further evaluation. Continue Rocephin for UTI. Urine culture pending. Continue p.o. Lasix 40 mg twice daily. Rest of management as per JOHN Saucedo's notes which I have reviewed and endorsed. Code Visit Inpatient E&M: 63942 Subs Hosp L3
--- NOTE | 2018-08-02 16:16 | PCM.CONS.R ---
Problem List (1) ESRD (end stage renal disease) on dialysis Status: Chronic Consultation - Renal PCP/ Referring MD: Requesting physician: [] Primary care physician: Felice Peraza - History of Present Illness History of Present Illness: The patient is a 68 year old F PMH of ESRD on TTS. Pt presented with fatigue and confusion. Pt was admitted for COPD exacerbation and UTI Renal team was consulted for ESRD care while she is inpatient Pt follows with vacation sales advisor at [facility]. she could not remember his name Pt last HD session was last Confusion has resolved. breathing is stable ROS: 12 systems review is negative except some SOB [] - Allergies Allergies: Allergies aspirin Adverse Reaction (Verified 08/01/18 13:12) Nausea - Current Medications Current Medications: Current Medications Acetaminophen (Tylenol) 650 mg PO Q6H PRN PRN PRN Reason: Non-cardiac pain (mod-severe) Last Admin: 08/02/18 14:04 Dose: 650 mg Al Hydroxide/Mg Hydroxide (Mylanta Ii) 15 - 30 ml PO Q4H PRN PRN PRN Reason: INDIGESTION Albuterol Sulfate (Ventolin Aerosols) 2.5 mg INHALATION Q2H PRN PRN PRN Reason: dyspnea, wheezing Albuterol/Ipratropium (Duoneb) 3 ml INHALATION Q4HWA.RT [facility] Last Admin: 08/02/18 15:24 Dose: 3 ml Atorvastatin Calcium (Lipitor) 10 mg PO QHS [facility] Last Admin: 08/01/18 21:39 Dose: 10 mg Bisacodyl (Dulcolax) 10 mg RECTAL Q8H PRN PRN Reason: Constipation Calcium Acetate (Phoslo Gel Cap) 1,334 mg PO TIDCM [facility] Last Admin: 08/02/18 12:04 Dose: 1,334 mg Cholecalciferol (Vitamin D) 1,000 unit PO DAILY [facility] Last Admin: 08/02/18 09:58 Dose: 1,000 unit Docusate Sodium (Colace) 100 mg PO BID [facility] Last Admin: 08/02/18 09:57 Dose: 100 mg Escitalopram Oxalate (Lexapro) 5 mg PO QHS [facility] Last Admin: 08/01/18 21:50 Dose: Not Given Furosemide (Lasix) 40 mg PO BIDLX [facility] Last Admin: 08/02/18 09:58 Dose: 40 mg Gabapentin (Neurontin) 400 mg PO QHS [facility] Last Admin: 08/01/18 21:51 Dose: Not Given Gabapentin (Neurontin) 300 mg PO BID@0800,1400 [facility] Last Admin: 08/02/18 14:05 Dose: 300 mg Hydralazine HCl (Apresoline Iv) 10 mg IV Q4H PRN PRN PRN Reason: SBP > 160 Ceftriaxone Sodium (Rocephin) 1 gm in 50 mls @ 100 mls/hr IV Q24 [facility] Last Admin: 08/02/18 12:04 Dose: 100 mls/hr Insulin Glargine (Lantus (Bkc)) 17 units SC QHS [facility] Last Admin: 08/01/18 21:38 Dose: Not Given Insulin Human Lispro (Humalog Kwikpen (Bkc)) 0 unit SC ACHS [facility]; Protocol Last Admin: 08/02/18 12:04 Dose: 5 u Insulin Human Lispro (Humalog Kwikpen (Bkc)) 8 unit SC BIDCM [facility] Last Admin: 08/02/18 09:52 Dose: 8 u Levothyroxine Sodium (Synthroid) 200 mcg PO DAILY@0600 [facility] Last Admin: 08/02/18 05:25 Dose: 200 mcg Lidocaine/Prilocaine (Emla Cream W/Tegaderm) 0 gm TOPICAL [facility] Loratadine (Claritin) 10 mg PO DAILY [facility] Last Admin: 08/02/18 09:57 Dose: 10 mg Magnesium Hydroxide (Milk Of Magnesia) 30 ml PO DAILY PRN PRN Reason: Constipation Melatonin (Melatonin) 3 mg PO QHS [facility] Last Admin: 08/01/18 21:39 Dose: Not Given Methylprednisolone (Solu-Medrol) 40 mg IV Q8 [facility] Last Admin: 08/02/18 14:05 Dose: 40 mg Midodrine (Proamatine) 10 mg PO TUTA [facility] Morphine Sulfate () 1 - 2 mg IV Q4H PRN PRN PRN Reason: PAIN Multivitamins (Multivitamin) 1 tablet PO DAILY@0800 [facility] Last Admin: 08/02/18 09:56 Dose: 1 tablet Nicotine (Nicoderm Cq (Pbkc)) 14 mg TRANSDERM. DAILY [facility] Last Admin: 08/02/18 09:57 Dose: 14 mg Nitroglycerin (Nitrostat) 0.4 mg SUBLINGUAL Q5M PRN PRN Reason: CARDIAC/CHEST PAIN Nystatin (Mycostatin Powder) 1 applic TOPICAL BID [facility]; Protocol Last Admin: 08/02/18 12:05 Dose: 1 applic Ondansetron HCl (Zofran) 4 mg IV Q8H PRN PRN PRN Reason: NAUSEA/VOMITING Oxycodone HCl (Oxyir) 5 mg PO 4X/DAY PRN PRN Reason: PAIN Pantoprazole Sodium (Protonix) 40 mg PO LUNCH [facility] Last Admin: 08/02/18 12:04 Dose: 40 mg Paroxetine HCl (Paxil) 10 mg PO DAILY [facility] Last Admin: 08/02/18 09:58 Dose: 10 mg Polyethylene Glycol (Miralax) 17 gm PO DAILY PRN PRN Reason: Constipation Senna (Senokot) 2 tablet PO DAILY [facility] Last Admin: 08/02/18 09:58 Dose: 2 tablet Sodium Chloride () 5 - 15 ml IV UD PRN PRN Reason: SALINE FLUSH Last Admin: 08/02/18 12:04 Dose: 10 ml Warfarin Sodium (Coumadin (Pbkc)) 1 mg PO MoTuWeThFr@1700 [facility] Last Admin: 08/01/18 18:47 Dose: 1 mg Warfarin Sodium (Coumadin (Pbkc)) 3 mg PO SuSa@1700 [facility] - Past Medical History Past Medical History (Chronic Problems): Chronic Problems Anemia in chronic illness (Chronic) Liver transplant recipient (Chronic) ESRD (end stage renal disease) on dialysis (Chronic) Aortic ejection murmur (Chronic) - Past Surgical History Surgical History: appendectomy, cholecystectomy, hysterectomy, - - Fistula placement - Social History Smoking Status: Current every day smoker Alcohol: None - Per Drugs: None - Family History Maternal History Items: - - Patient denies known maternal medical history including cardiac history. Paternal History Items: - - Denies known paternal medical history including cardiac history. Patient Problems: Active and Suspected Problems Acute respiratory failure with hypoxia and hypercapnia (Acute) COPD exacerbation (Acute) - Physical Exam General: Alert, Oriented x3 HEENT: Atraumatic Oral: Moist Mucosa Neck: Supple, No JVD Lungs: Clear to auscultation, Normal air movement Cardiovascular: Regular rate, Regular Rhythm, Normal S1, Normal S2, Murmur Abdomen: Bowel Sounds Present, Non Tender Extremities: No clubbing, No cyanosis, Edema - +1 edema of LE Musculoskeletal: No Muscle Wasting Lymphatic: No Cervical, Supraclavicular, or Inguinal Adenopathy Neurological: Cranial nerves II-XII grossly intact, Neuro grossly intact Psych/Mental Status: Appropriate Vital Signs Temp Pulse Resp BP Pulse Ox 99.5 F H 78 16 127/68 H 94 08/02/18 09:42 08/02/18 15:25 08/02/18 15:25 08/02/18 09:42 08/02/18 15:25 Oxygen Flow Rate (L/min) 2 Oxygen Delivery Method Nasal Cannula Weight: 108.4 kg Body Mass Index (BMI) 46.9 Intake and Output for Last 24 Hours 07/31/18 08/01/18 08/02/18 23:59 23:59 23:59 Intake Total 80 / 80 510 / 510 Output Total 0 / 0 Balance 80 / 80 510 / 510 Microbiology Past 72 Hours 08/01/18 19:35 Respiratory Panel (PCR) - Final Mucosa - Nasopharyngeal Laboratory Tests Past 24 Hrs 08/01/18 08/01/18 08/01/18 13:30 15:55 17:44 PT INR Specimen Type Sample Site pH Bicarbonate Actual POC Total CO2 Base Excess O2 Saturation O2 % ABG pCO2 ABG pO2 Arash Test Respiration Rate O2 Delivery Device EPAP IPAP Blood Gas Notified Whom Magnesium 2.3 Total Bilirubin Direct Bilirubin AST ALT Alkaline Phosphatase Ammonia 17.0 Troponin I 0.194 H Total Protein Albumin Globulin 08/01/18 08/01/18 08/02/18 20:05 22:42 07:22 PT 22.5 H INR 2.0 Specimen Type ART Sample Site L Brachial pH 7.29 L Bicarbonate Actual 29.2 H POC Total CO2 31 Base Excess 3 H O2 Saturation 92 L O2 % 30 ABG pCO2 60.5 H ABG pO2 74 L Arash Test NA Respiration Rate 14 O2 Delivery Device Bi / C PAP EPAP 6 IPAP 18 Blood Gas Notified Whom FRANCES DOWNING Magnesium Total Bilirubin Direct Bilirubin AST ALT Alkaline Phosphatase Ammonia Troponin I 0.174 H Total Protein Albumin Globulin 08/02/18 08/02/18 07:22 10:12 PT INR Specimen Type Sample Site pH Bicarbonate Actual POC Total CO2 Base Excess O2 Saturation O2 % ABG pCO2 ABG pO2 Arash Test Respiration Rate O2 Delivery Device EPAP IPAP Blood Gas Notified Whom Magnesium Total Bilirubin 0.30 Direct Bilirubin 0.09 AST 271 H ALT 172 H Alkaline Phosphatase 708 H Ammonia 14.0 Troponin I Total Protein 6.9 Albumin 2.4 L Globulin 4.5 H POC Glucose 08/02/18 08/02/18 08/01/18 11:43 06:39 22:22 POC Glucose 335 H 274 H 162 H 08/01/18 08/01/18 21:29 18:34 POC Glucose 154 H 195 H Assessment/Plan All Active Problems Acute respiratory failure with hypoxia and hypercapnia (Acute) COPD exacerbation (Acute) Abnormal nuclear stress test (Resolved) 1- ESRD on TTS 2- CKD BMD 3- Anemia 4- UTI 5- COPD. Improving Plan: Will arrange for HD today for 3 hours BQ 400 DQ 600 UF 2L Continue phoslo with meals No need for OMERO for now COPD treatment and Abx or UTI as per the primary service Renal team will continue to follow Thank you for the consult Please call if any question Antoni Morgan MD
--- NOTE | 2018-08-02 16:21 | CON.PCM_ITS ---
Problem List (1) ESRD (end stage renal disease) on dialysis Status: Chronic Consultation - Renal PCP/ Referring MD: Requesting physician: [] Primary care physician: Felice Peraza - History of Present Illness History of Present Illness: The patient is a 68 year old F PMH of ESRD on TTS. Pt presented with fatigue and confusion. Pt was admitted for COPD exacerbation and UTI Renal team was consulted for ESRD care while she is inpatient Pt follows with assembler fitter at [facility]. she could not remember his name Pt last HD session was last Confusion has resolved. breathing is stable ROS: 12 systems review is negative except some SOB [] - Allergies Allergies: Allergies aspirin Adverse Reaction (Verified 08/01/18 13:12) Nausea - Current Medications Current Medications: Current Medications Acetaminophen (Tylenol) 650 mg PO Q6H PRN PRN PRN Reason: Non-cardiac pain (mod-severe) Last Admin: 08/02/18 14:04 Dose: 650 mg Al Hydroxide/Mg Hydroxide (Mylanta Ii) 15 - 30 ml PO Q4H PRN PRN PRN Reason: INDIGESTION Albuterol Sulfate (Ventolin Aerosols) 2.5 mg INHALATION Q2H PRN PRN PRN Reason: dyspnea, wheezing Albuterol/Ipratropium (Duoneb) 3 ml INHALATION Q4HWA.RT [facility] Last Admin: 08/02/18 15:24 Dose: 3 ml Atorvastatin Calcium (Lipitor) 10 mg PO QHS [facility] Last Admin: 08/01/18 21:39 Dose: 10 mg Bisacodyl (Dulcolax) 10 mg RECTAL Q8H PRN PRN Reason: Constipation Calcium Acetate (Phoslo Gel Cap) 1,334 mg PO TIDCM [facility] Last Admin: 08/02/18 12:04 Dose: 1,334 mg Cholecalciferol (Vitamin D) 1,000 unit PO DAILY [facility] Last Admin: 08/02/18 09:58 Dose: 1,000 unit Docusate Sodium (Colace) 100 mg PO BID [facility] Last Admin: 08/02/18 09:57 Dose: 100 mg Escitalopram Oxalate (Lexapro) 5 mg PO QHS [facility] Last Admin: 08/01/18 21:50 Dose: Not Given Furosemide (Lasix) 40 mg PO BIDLX [facility] Last Admin: 08/02/18 09:58 Dose: 40 mg Gabapentin (Neurontin) 400 mg PO QHS [facility] Last Admin: 08/01/18 21:51 Dose: Not Given Gabapentin (Neurontin) 300 mg PO BID@0800,1400 [facility] Last Admin: 08/02/18 14:05 Dose: 300 mg Hydralazine HCl (Apresoline Iv) 10 mg IV Q4H PRN PRN PRN Reason: SBP > 160 Ceftriaxone Sodium (Rocephin) 1 gm in 50 mls @ 100 mls/hr IV Q24 [facility] Last Admin: 08/02/18 12:04 Dose: 100 mls/hr Insulin Glargine (Lantus (Bkc)) 17 units SC QHS [facility] Last Admin: 08/01/18 21:38 Dose: Not Given Insulin Human Lispro (Humalog Kwikpen (Bkc)) 0 unit SC ACHS [facility]; Protocol Last Admin: 08/02/18 12:04 Dose: 5 u Insulin Human Lispro (Humalog Kwikpen (Bkc)) 8 unit SC BIDCM [facility] Last Admin: 08/02/18 09:52 Dose: 8 u Levothyroxine Sodium (Synthroid) 200 mcg PO DAILY@0600 [facility] Last Admin: 08/02/18 05:25 Dose: 200 mcg Lidocaine/Prilocaine (Emla Cream W/Tegaderm) 0 gm TOPICAL [facility] Loratadine (Claritin) 10 mg PO DAILY [facility] Last Admin: 08/02/18 09:57 Dose: 10 mg Magnesium Hydroxide (Milk Of Magnesia) 30 ml PO DAILY PRN PRN Reason: Constipation Melatonin (Melatonin) 3 mg PO QHS [facility] Last Admin: 08/01/18 21:39 Dose: Not Given Methylprednisolone (Solu-Medrol) 40 mg IV Q8 [facility] Last Admin: 08/02/18 14:05 Dose: 40 mg Midodrine (Proamatine) 10 mg PO TUTA [facility] Morphine Sulfate () 1 - 2 mg IV Q4H PRN PRN PRN Reason: PAIN Multivitamins (Multivitamin) 1 tablet PO DAILY@0800 [facility] Last Admin: 08/02/18 09:56 Dose: 1 tablet Nicotine (Nicoderm Cq (Pbkc)) 14 mg TRANSDERM. DAILY [facility] Last Admin: 08/02/18 09:57 Dose: 14 mg Nitroglycerin (Nitrostat) 0.4 mg SUBLINGUAL Q5M PRN PRN Reason: CARDIAC/CHEST PAIN Nystatin (Mycostatin Powder) 1 applic TOPICAL BID [facility]; Protocol Last Admin: 08/02/18 12:05 Dose: 1 applic Ondansetron HCl (Zofran) 4 mg IV Q8H PRN PRN PRN Reason: NAUSEA/VOMITING Oxycodone HCl (Oxyir) 5 mg PO 4X/DAY PRN PRN Reason: PAIN Pantoprazole Sodium (Protonix) 40 mg PO LUNCH [facility] Last Admin: 08/02/18 12:04 Dose: 40 mg Paroxetine HCl (Paxil) 10 mg PO DAILY [facility] Last Admin: 08/02/18 09:58 Dose: 10 mg Polyethylene Glycol (Miralax) 17 gm PO DAILY PRN PRN Reason: Constipation Senna (Senokot) 2 tablet PO DAILY [facility] Last Admin: 08/02/18 09:58 Dose: 2 tablet Sodium Chloride () 5 - 15 ml IV UD PRN PRN Reason: SALINE FLUSH Last Admin: 08/02/18 12:04 Dose: 10 ml Warfarin Sodium (Coumadin (Pbkc)) 1 mg PO MoTuWeThFr@1700 [facility] Last Admin: 08/01/18 18:47 Dose: 1 mg Warfarin Sodium (Coumadin (Pbkc)) 3 mg PO SuSa@1700 [facility] - Past Medical History Past Medical History (Chronic Problems): Chronic Problems Anemia in chronic illness (Chronic) Liver transplant recipient (Chronic) ESRD (end stage renal disease) on dialysis (Chronic) Aortic ejection murmur (Chronic) - Past Surgical History Surgical History: appendectomy, cholecystectomy, hysterectomy, - - Fistula placement - Social History Smoking Status: Current every day smoker Alcohol: None - Per Drugs: None - Family History Maternal History Items: - - Patient denies known maternal medical history including cardiac history. Paternal History Items: - - Denies known paternal medical history including cardiac history. Patient Problems: Active and Suspected Problems Acute respiratory failure with hypoxia and hypercapnia (Acute) COPD exacerbation (Acute) - Physical Exam General: Alert, Oriented x3 HEENT: Atraumatic Oral: Moist Mucosa Neck: Supple, No JVD Lungs: Clear to auscultation, Normal air movement Cardiovascular: Regular rate, Regular Rhythm, Normal S1, Normal S2, Murmur Abdomen: Bowel Sounds Present, Non Tender Extremities: No clubbing, No cyanosis, Edema - +1 edema of LE Musculoskeletal: No Muscle Wasting Lymphatic: No Cervical, Supraclavicular, or Inguinal Adenopathy Neurological: Cranial nerves II-XII grossly intact, Neuro grossly intact Psych/Mental Status: Appropriate Vital Signs Temp Pulse Resp BP Pulse Ox 99.5 F H 78 16 127/68 H 94 08/02/18 09:42 08/02/18 15:25 08/02/18 15:25 08/02/18 09:42 08/02/18 15:25 Oxygen Flow Rate (L/min) 2 Oxygen Delivery Method Nasal Cannula Weight: 108.4 kg Body Mass Index (BMI) 46.9 Intake and Output for Last 24 Hours 07/31/18 08/01/18 08/02/18 23:59 23:59 23:59 Intake Total 80 / 80 510 / 510 Output Total 0 / 0 Balance 80 / 80 510 / 510 Microbiology Past 72 Hours 08/01/18 19:35 Respiratory Panel (PCR) - Final Mucosa - Nasopharyngeal Laboratory Tests Past 24 Hrs 08/01/18 08/01/18 08/01/18 13:30 15:55 17:44 PT INR Specimen Type Sample Site pH Bicarbonate Actual POC Total CO2 Base Excess O2 Saturation O2 % ABG pCO2 ABG pO2 Arash Test Respiration Rate O2 Delivery Device EPAP IPAP Blood Gas Notified Whom Magnesium 2.3 Total Bilirubin Direct Bilirubin AST ALT Alkaline Phosphatase Ammonia 17.0 Troponin I 0.194 H Total Protein Albumin Globulin 08/01/18 08/01/18 08/02/18 20:05 22:42 07:22 PT 22.5 H INR 2.0 Specimen Type ART Sample Site L Brachial pH 7.29 L Bicarbonate Actual 29.2 H POC Total CO2 31 Base Excess 3 H O2 Saturation 92 L O2 % 30 ABG pCO2 60.5 H ABG pO2 74 L Arash Test NA Respiration Rate 14 O2 Delivery Device Bi / C PAP EPAP 6 IPAP 18 Blood Gas Notified Whom FRANCES DOWNING Magnesium Total Bilirubin Direct Bilirubin AST ALT Alkaline Phosphatase Ammonia Troponin I 0.174 H Total Protein Albumin Globulin 08/02/18 08/02/18 07:22 10:12 PT INR Specimen Type Sample Site pH Bicarbonate Actual POC Total CO2 Base Excess O2 Saturation O2 % ABG pCO2 ABG pO2 Arash Test Respiration Rate O2 Delivery Device EPAP IPAP Blood Gas Notified Whom Magnesium Total Bilirubin 0.30 Direct Bilirubin 0.09 AST 271 H ALT 172 H Alkaline Phosphatase 708 H Ammonia 14.0 Troponin I Total Protein 6.9 Albumin 2.4 L Globulin 4.5 H POC Glucose 08/02/18 08/02/18 08/01/18 11:43 06:39 22:22 POC Glucose 335 H 274 H 162 H 08/01/18 08/01/18 21:29 18:34 POC Glucose 154 H 195 H Assessment/Plan All Active Problems Acute respiratory failure with hypoxia and hypercapnia (Acute) COPD exacerbation (Acute) Abnormal nuclear stress test (Resolved) 1- ESRD on TTS 2- CKD BMD 3- Anemia 4- UTI 5- COPD. Improving Plan: Will arrange for HD today for 3 hours BQ 400 DQ 600 UF 2L Continue phoslo with meals No need for OMERO for now COPD treatment and Abx or UTI as per the primary service Renal team will continue to follow Thank you for the consult Please call if any question Antoni Morgan MD
[2018-08-02] MEDS: Midodrine HCl 5 MG Tablet 10 MG PO (17:25)
[2018-08-02] MEDS: Lidocaine/Prilocaine HCl 5 GM Tube TOPICAL (17:25)
[2018-08-02] MEDS: oxyCODONE 5 MG Tablet PO (17:31)
[2018-08-02 17:51] LABS: Bedside Glucose 421 mg/dL (70-110)
[2018-08-02] MEDS: Gabapentin 400 MG Capsule PO (22:21)
[2018-08-02] MEDS: Escitalopram Oxalate 10 MG Tablet 5 MG PO (22:21)
[2018-08-02] MEDS: Atorvastatin Calcium 10 MG Tablet PO (22:21)
[2018-08-02] MEDS: MELATONIN 3 MG TABLET PO (22:21)
[2018-08-02 22:35] LABS: Bedside Glucose 266 mg/dL (70-110)
[2018-08-03] VITALS (8 sets, daily range): BP systolic 121–140; BP diastolic 42–47; PULSE 67–81; RESP 16–18; TEMP 36.6–37.1; O2SAT 96–100
[2018-08-03] MEDS: oxyCODONE 5 MG Tablet PO ×2 (00:08→10:34)
[2018-08-03] MEDS: 0.9% NaCl Peripheral Flush Adult/Peds IV (05:23)
[2018-08-03] MEDS: Levothyroxine 100 MCG Tablet 200 MCG PO (05:23)
[2018-08-03] MEDS: Acetaminophen 325 MG Tablet 650 MG PO (05:23)
--- NOTE | 2018-08-03 05:31 | CPS ---
PT REFUSED BIPAP
[2018-08-03 06:41] LABS: Bedside Glucose 413 mg/dL (70-110)
[2018-08-03 07:37] LABS: Hematocrit 28.3 % (37-47); Hemoglobin 8.9 g/dl (12.0-15.0); Mean Corp Hgb Conc 31.4 g/gl (32-36); Mean Corpuscular Hgb 31.7 pg (27.0-32.0); Mean Corpuscular Volume 100.7 fL (81-99); Platelet Count 195 K/mm3 (150-450); RBC Distribution Width CV 16.1 % (11.6-14.6); RBC Distribution Width SD 58.3 fl (35.1-43.9); Red Blood Count 2.81 M/mm3 (4.2-5.4); White Blood Count 9.1 K/mm3 (4.4-11.0)
[2018-08-03 07:43] LABS: Scan Indicated on CBC? Y/N NO
[2018-08-03] MEDS: Ipratropium/Albuterol Sulfate 3 ML AMPUL.NEB INHALATION ×2 (07:48→11:14)
[2018-08-03 08:08] LABS: ALB/GLOB Ratio 0.6 RATIO (0.9-2.4); AST(SGOT) 99 U/L (15-37); Alanine Aminotransfer ALT/SGPT 118 U/L (13-56); Albumin, Serum 2.5 g/dL (3.2-5.0); Alkaline Phosphatase 580 U/L (45-117); Anion Gap 9 (5-15); BUN 39 mg/dL (7-18); BUN/Creat Ratio 12.5 RATIO (10-20); Calcium,Total 8.8 mg/dL (8.5-10.1); Chloride 99 mmol/L (98-107); Creatinine, Serum 3.13 mg/dL (0.55-1.02); EST Glomerular Filtration Rate 16 mL/min (>60); Est Glom Filt Rate - Afr Amer 19 mL/min (>60); Estimated Creatinine Clearance 29.54 ml/min; Globulin 4.3 g/dL (2.2-4.2); Glucose 426 mg/dL (74-106); Potassium 5.3 mmol/L (3.5-5.1); Protein, Total 6.8 g/dL (6.4-8.2); Sodium Level 134 mmol/L (136-145)
[2018-08-03] MEDS: Insulin Lispro 100 UNIT/ML INSULN.PEN SC ×2 (08:55→11:35)
[2018-08-03] MEDS: Insulin Lispro 100 UNIT/ML INSULN.PEN 8 UNIT SC (08:56)
[2018-08-03] MEDS: Multivitamins,Therapeutic Tablet 1 TABLET PO (08:59)
[2018-08-03] MEDS: Gabapentin 300 MG Capsule PO ×2 (09:00→11:36)
[2018-08-03] MEDS: Senna Tablet 2 TABLET PO (09:00)
[2018-08-03] MEDS: Calcium Acetate 667 MG Capsule 1334 MG PO ×2 (09:02→11:35)
[2018-08-03] MEDS: PARoxetine 10 MG Tablet PO (09:02)
[2018-08-03] MEDS: Furosemide 40 MG Tablet PO (09:02)
[2018-08-03] MEDS: Loratadine 10 MG Tablet PO (09:03)
[2018-08-03] MEDS: Docusate Sodium 100 MG Capsule PO (09:03)
[2018-08-03] MEDS: Nystatin Powder 15gm Bottle 1 APPLIC TOPICAL (09:05)
[2018-08-03] MEDS: Ceftriaxone 1 GM/50 ML BAG IV (09:09)
[2018-08-03] MEDS: Pantoprazole Sodium 40 MG Tablet PO (11:37)
[2018-08-03 11:45] LABS: Bedside Glucose 391 mg/dL (70-110)
--- NOTE | 2018-08-03 11:59 | TREXTCA.CO_ITS ---
<Kita Lizarraga - Last Filed: 08/03/18 13:25> - Diet 08/02/18 09:05 Diet: Cardiac: Calorie-Controlled Food consistency:: Mechanical Soft/Ground Liquid Consistency:: Regular/Thin Is pt able to select menu?: Yes How many daily calories?: 1800 calorie - Routine Orders/Code Status Enema Type: Fleetz Enema Frequency: Daily PRN Suppository Type: Dulcolax 10mg Suppository Frequency: Daily PRN O2 Liters per Minute: 2-4 O2 Frequency: Continuous Keep PO Greater than or Equal to (%): 90 - BIPAP 14/10 QHS and with naps. Routine Lab Work: - - BMP, CBC Daily X3 days and then Q Week. Repeat Liver Profile in 1 Week. Code Status: [facility] - Suggestions for Active Care Change Position every (hours): 2 Times a day to sit in chair: 3 - Therapies Physical Therapy: Eval and Treat Occupational Therapy: Eval and Treat Speech Therapy: Eval and Treat - Problem/Diagnosis (1) Acute respiratory failure with hypoxia and hypercapnia Status: Acute Current Visit: Yes (2) Anemia in chronic illness Status: Chronic Current Visit: No (3) COPD exacerbation Status: Acute Current Visit: Yes (4) ESRD (end stage renal disease) on dialysis Status: Chronic Current Visit: No (5) Abnormal nuclear stress test Status: Resolved Current Visit: No (6) Aortic ejection murmur Status: Chronic Current Visit: No - Allergies/Procedures Done in Hospital Allergies/Adverse Reactions: Allergies aspirin Adverse Reaction (Verified 08/01/18 13:12) Nausea Procedures: Dialysis - Type of Care/Length of Stay Estimated LOS: More Than 30 Days Type of Care Needed: Skilled Rehab Potential: Fair Prognosis: Fair - Additional Orders/Day of Discharge Additional Orders: BIPAP 14/10 QHS and with naps. If liver profile remains elevated on repeat lab in 1 week, recommend liver ultrasound. H&P will serve as current which was dated: 08/01/18 Day of Discharge: 08/03/18 - Follow Up Care Primary Care Physician: Felice Peraza [Primary Care Provider] - Please follow up with your Primary Care Physician in: 1 Week Please Follow Up With: Tho Schmidt DO When: Call for palliative care consult Please Follow Up With: Nephrology/Dialysis When: Continue as scheduled <Jenifer Bahena - Last Filed: 08/03/18 13:35> - Diet 08/02/18 09:05 Diet: Cardiac: Calorie-Controlled Food consistency:: Mechanical Soft/Ground Liquid Consistency:: Regular/Thin Is pt able to select menu?: Yes How many daily calories?: 1800 calorie
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
--- NOTE | 2018-08-03 15:15 | NURSING ---
Report called to Fay Sanchez to nurse Nancy.
[2018-08-05 03:06] LABS: HEPATITIS B SURFACE AG Negative (Negative); Hepatitis A AB, Total Negative (Negative); Hepatitis A IgM Antibody Negative (Negative); Hepatitis B Core AB IgM Negative (Negative); Hepatitis B Core Ab Total Negative (Negative); Hepatitis C Ab <0.1 s/co ratio (0.0-0.9)
[2018-08-05 17:51] LABS: Hep B Surface Antibodies Reactive (.)
== END 2018-08-03 15:36 | disposition skilled nursing facility (03) | DRG 189 ==
LOC: ED 15:36 → PCU 16:03
PROVIDERS: Nurse Practitioner Family; Admitting Provider Family Medicine; Emergency Provider Emergency Medicine; Family Provider Family Medicine; PCP Family Medicine; Referring Provider Family Medicine; Visit Provider Student in an Organized Health Care Education/Training Program
DX: J96.21 Acute and chronic respiratory failure with hypoxia (principal); N18.6 End stage renal disease; G93.41 Metabolic encephalopathy; Z94.4 Liver transplant status; J44.1 Chronic obstructive pulmonary disease with (acute) exacerbation; Z68.42 Body mass index [BMI] 45.0-49.9, adult; J44.0 Chronic obstructive pulmonary disease with (acute) lower respiratory infection; I12.0 Hypertensive chronic kidney disease with stage 5 chronic kidney disease or end stage renal disease; I24.8 Other forms of acute ischemic heart disease; I69.054 Hemiplegia and hemiparesis following nontraumatic subarachnoid hemorrhage affecting left non-dominant side; J20.9 Acute bronchitis, unspecified; Z66 Do not resuscitate; J96.22 Acute and chronic respiratory failure with hypercapnia; E66.01 Morbid (severe) obesity due to excess calories; E11.40 Type 2 diabetes mellitus with diabetic neuropathy, unspecified; Z79.4 Long term (current) use of insulin; E03.9 Hypothyroidism, unspecified; K59.09 Other constipation; I48.0 Paroxysmal atrial fibrillation; Z79.01 Long term (current) use of anticoagulants; E78.5 Hyperlipidemia, unspecified; E11.22 Type 2 diabetes mellitus with diabetic chronic kidney disease; Z99.2 Dependence on renal dialysis; D63.8 Anemia in other chronic diseases classified elsewhere; G47.33 Obstructive sleep apnea (adult) (pediatric); Z91.19 Patient's noncompliance with other medical treatment and regimen; K21.9 Gastro-esophageal reflux disease without esophagitis; Z95.0 Presence of cardiac pacemaker; F01.50 Vascular dementia, unspecified severity, without behavioral disturbance, psychotic disturbance, mood disturbance, and anxiety; E87.5 Hyperkalemia; R53.81 Other malaise; F32.9 Major depressive disorder, single episode, unspecified; F17.200 Nicotine dependence, unspecified, uncomplicated
CPT/HCPCS: 36415; 36600; 71045; 71046; 80053; 80076; 81001; 82140; 82803; 82962; 83605; 83735; 83880; 84484; 85025; 85027; 85610; 86704; 86705; 86706; 86708; 86709; 86803; 87086; 87340; 87633; 90937; 92610; 93005; 94002; 94003; 94640; 97163; 97165; 97802; 99251; 99285; 99406; P9612; A4216; G0257; G0463

== ENCOUNTER 2018-10-31 14:22 | Outpatient (RCR) | payer MEDICAID, MEDICARE, SELFPAY ==
[2018-08-01 16:43] VITALS: BMI 46.9
[2018-10-31 14:47] VITALS: BP 92/42; PULSE 88; RESP 18; TEMP 36.3; BMI 46.9
--- NOTE | 2018-10-31 14:50 | WC ---
PT HAS AN AREA RIGHT 4TH AND 5TH TOE ESCHAR AND NECTROTIC AREA NOTED. DR RUFF TALKED WITH FAMILY.
--- NOTE | 2018-10-31 14:52 | WC ---
NECROTIC AREA ON RIGHT 5HT . 4TH TOE MEASURED OF 7X5X0.1
--- NOTE | 2018-10-31 19:25 | PCM.WC.HP ---
(1) Gangrene of right foot Status: Acute Current Visit: Yes Code(s): I96 - Gangrene, not elsewhere classified (2) Acute respiratory failure with hypoxia and hypercapnia Status: Acute Current Visit: Yes Code(s): J96.01 - Acute respiratory failure with hypoxia; J96.02 - Acute respiratory failure with hypercapnia (3) ESRD (end stage renal disease) on dialysis Status: Chronic Current Visit: Yes Code(s): N18.6 - End stage renal disease; Z99.2 - Dependence on renal dialysis History of Present Illness Date of Service: 10/31/18 Chief Complaint: black toes History of Wound: Mary Beth was evaluated briefly by me with history mostly provided by her son, Chay. She was scheduled to be seen at the wound center for her right foot but there were no open wounds present. She had color changes to her last 3 digits of her right foot with mottling of the distal aspects of her feet bilaterally. She did not have any drainage or exudate present from her toes. Per her son her toes became dark purple and then black approx. 3 weeks ago and the color change has been spreading across her toes. She is on chronic dialysis and has diabetes and COPD with oxygen dependence. She has pain in her toes as well. She also has heart disease. Based on my exam, I did not feel that she would benefit from further evaluation here and recommended that she be evaluated by the ER for urgent CT angiogram and possible arterial intervention. Surgery might also be necessary but she may not be a candidate for surgery due to her comorbidities but a regional anesthetic block may be possible if surgical intervention was necessary. Her son verbalized understanding and planned to contact her aeronautical research engineer office to have them order testing and continue her care. I encouraged urgent consultation with vascular surgery but do not believe that her 5th digit is salvagable. Past Medical History Past Medical History: Chronic Problems Anemia in chronic illness (Chronic) ESRD (end stage renal disease) on dialysis (Chronic) Aortic ejection murmur (Chronic) Surgical History: appendectomy, cholecystectomy, hysterectomy, - - Fistula placement Allergies/Adverse Reactions: Allergies aspirin Adverse Reaction (Verified 10/31/18 16:45) Nausea Home Medications: Ambulatory Orders Medication Instructions Recorded Albuterol IH (ProAir) [Proair Hfa] 2 puff INHALATION Q4H PRN PRN 08/01/18 Atorvastatin Calcium [Lipitor] 10 mg PO DAILY 08/01/18 B Complex W-C No.20/Folic Acid 1 capsule PO DAILY 08/01/18 [Virt-Caps Softgel] Bisacodyl [Dulcolax] 10 mg RECTAL Q8H PRN 08/01/18 Calcium Carb/Magnesium Hydrox 1 - 2 tab PO 4X/DAY PRN 08/01/18 [Antacid Chewable Tablet] Cholecalciferol (VIT D3) [Vitamin 1,000 unit PO DAILY 08/01/18 D3] Dextrose [Glutose-15] 1 applicatio PO PRN PRN 08/01/18 DiphenhydrAMINE [Benadryl] 0.5 tablet PO Q6H PRN 08/01/18 Docusate Sodium [Colace] 100 mg PO BID 08/01/18 Escitalopram Oxalate [Lexapro] 5 mg PO QHS 08/01/18 Fexofenadine HCl 60 mg PO QHS 08/01/18 Furosemide [Lasix] 40 mg PO BID 08/01/18 Glucagon,Human Recombinant 1 dose SQ PRN PRN 08/01/18 [Glucagon Emergency Kit] Insulin Aspart [Novolog Flexpen] 12 units SC TID 08/01/18 Insulin Detemir [Levemir] 17 unit SQ QHS 08/01/18 Ipratropium/Albuterol Sulfate 3 ml INHALATION Q4H.RT PRN 08/01/18 [Duoneb] Levothyroxine Sodium 200 mcg PO DAILY 08/01/18 Lidocaine/Prilocaine [Agoneaze 1 each TP TUTHSA 08/01/18 2.5%-2.5% Cream Dress] Loratadine 10 mg PO DAILY 08/01/18 Melatonin 3 mg PO QHS 08/01/18 Midodrine HCl 10 mg PO TUTHSA 08/01/18 Multivitamin [Multivitamins] 1 each PO DAILY 08/01/18 Nystatin [Nyamyc] 100,000 units TP BID 08/01/18 Ondansetron [Zofran Odt] 4 mg PO Q6H PRN PRN 08/01/18 Pantoprazole Sodium 40 mg PO LUNCH 08/01/18 Paroxetine [Paxil] 10 mg PO QODAY 08/01/18 Polyethylene Glycol 3350 [Clearlax] 17 gm PO DAILY PRN 08/01/18 Senna [Senokot] 2 tablet PO DAILY 08/01/18 Warfarin [Coumadin] 2 mg PO DAILY 08/01/18 Acetaminophen [Tylenol Tablet] 650 mg PO Q6H PRN PRN tablet 08/03/18 Oxycodone HCl 5 mg PO 4X/DAY PRN #5 tab 08/03/18 Ciprofloxacin HCl 2.5 ml OP BID 10/31/18 Cyanocobalamin [Vitamin B12] 1,000 mcg IM Q30D 10/31/18 Hydrocortisone [Anusol Hc] 25 mg RECTAL BID PRN PRN 10/31/18 Insulin Aspart [Novolog Flexpen 12 units SUBCUT BIDCM 10/31/18 ([facility])] Methadone HCl [Dolophine] 5 mg PO Q12H PRN 10/31/18 Nicotine [Nicotrol] 10 mg IH 4X/DAY 10/31/18 - Family History Maternal - - Patient denies known maternal medical history including cardiac history. Paternal - - Denies known paternal medical history including cardiac history. Smoking Status: Former smoker - Physical Exam Vital Signs Temp Pulse Resp BP 97.3 F L 88 18 92/42 L 10/31/18 14:47 10/31/18 14:47 10/31/18 14:47 10/31/18 14:47 Assessment/Plan Active Problems Gangrene of right foot (Acute) Acute respiratory failure with hypoxia and hypercapnia (Acute) ESRD (end stage renal disease) on dialysis (Chronic)
== END 2018-11-05 23:59 ==
LOC: WC 14:22
PROVIDERS: Family Provider Family Medicine; PCP Family Medicine; Visit Provider Family Medicine
DX: I96 Gangrene, not elsewhere classified (principal); N18.6 End stage renal disease; Z99.2 Dependence on renal dialysis; J44.9 Chronic obstructive pulmonary disease, unspecified; E11.22 Type 2 diabetes mellitus with diabetic chronic kidney disease; Z87.891 Personal history of nicotine dependence

== ENCOUNTER 2018-10-31 16:44 | Emergency (ER) | payer MEDICARE, MEDICAID, SELFPAY ==
[2018-10-31 14:47] VITALS: BMI 46.9
[2018-10-31 16:45] VITALS: BP 135/69; PULSE 86; RESP 16; TEMP 36.8; O2SAT 99; BMI 40.9
[2018-10-31 17:42] LABS: Absolute Lymphocyte Count 0.87 X10^3/uL (0.83-4.51); Basophil# 0.04 X10^3/uL; Basophil% 0.3 % (0-1); Eosinophil# 0.05 X10^3/uL; Eosinophils% 0.3 % (0-5); Hematocrit 29.9 % (37-47); Hemoglobin 9.5 g/dL (12.0-15.0); Lymphocyte # 0.87 X10^3/ul (4.0); Lymphocyte % 5.9 % (19-41); Mean Corp Hgb Conc 31.8 g/dL (32-36); Mean Corpuscular Hgb 30.8 pg (27.0-32.0); Mean Corpuscular Volume 97.1 fL (81-99); Mean Platelet Vol. 9.6 fl (6.2-12.0); Monocyte# 0.76 X10^3/uL; Monocyte% 5.1 % (0-10); NRBC Flagged by Analyzer 0 % (0-5); Neutrophil # 13.03 X10^3/uL (2.7-7.7); Neutrophil % 87.9 % (47-70); Platelet Count 232 K/mm3 (150-450); RBC Distribution Width CV 15.9 % (11.6-14.6); RBC Distribution Width SD 56.9 fl (35.1-43.9); Red Blood Count 3.08 M/mm3 (4.2-5.4); White Blood Count 14.8 K/mm3 (4.4-11.0)
[2018-10-31 17:53] LABS: Anion Gap 6 (5-15); BUN 27 mg/dL (7-18); BUN/Creat Ratio 7.4 RATIO (10-20); Chloride 100 mmol/L (98-107); Creatinine, Serum 3.66 mg/dL (0.55-1.02); EST Glomerular Filtration Rate 13 mL/min (>60); Est Glom Filt Rate - Afr Amer 16 mL/min (>60); Glucose 316 mg/dL (74-106); Potassium 3.9 mmol/L (3.5-5.1); Sodium Level 133 mmol/L (136-145)
[2018-10-31] MEDS: Ondansetron 4 MG/2 ML Vial IV (18:01)
[2018-10-31] MEDS: Morphine 4 MG/ML Syringe IV (18:02)
[2018-10-31 18:07] LABS: Lactic Acid 0.9 mmol/L (0.4-2.0)
--- NOTE | 2018-10-31 18:10 | RAD_ITS ---
STUDY: X-RAY - RIGHT FOOT CLINICAL: Female, 68 years old. Foot pain and swelling TECHNIQUE: 3 view(s) of the foot. COMPARISON: None. FINDINGS: Normal talus, calcaneus, and tarsal bones. Normal visualized subtalar, talonavicular, calcaneocuboid, tarsal and tarsometatarsal articulations. Normal metatarsi. Normal metatarsophalangeal joint of the great toe. Normal tibial and fibular sesamoid bones. Normal interphalangeal joint of the great toe. Normal phalanges of the great toe. Normal second through fifth metatarsophalangeal joints. Radiolucency of the fused fifth distal and middle phalanges worrisome for destruction from osteomyelitis. The soft tissue structures are unremarkable. 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 Electronically Signed: Chris Frederick MD at 18:37 EDT Tel , Service support ,
--- NOTE | 2018-10-31 18:10 | RAD_ITS ---
STUDY: X-RAY - LEFT FOOT CLINICAL: Female, 68 years old. Foot pain and swelling TECHNIQUE: 3 view(s) of the foot. COMPARISON: None. FINDINGS: Normal talus, calcaneus, and tarsal bones. Normal visualized subtalar, talonavicular, calcaneocuboid, tarsal and tarsometatarsal articulations. Normal metatarsi. Normal metatarsophalangeal joint of the great toe. Normal tibial and fibular sesamoid bones. Normal interphalangeal joint of the great toe. Normal phalanges of the great toe. Normal second through fifth metatarsophalangeal joints. Normal interphalangeal joints and phalanges of the lesser toes. The soft tissue structures are unremarkable. RAD/Foot min 3 Views IMPRESSION: Normal x-ray examination of the foot. Electronically Signed: Chris Frederick MD at 18:36 EDT Tel , Service support ,
[2018-10-31 19:24] VITALS: BP 97/56; PULSE 83; RESP 16; TEMP 36.5; O2SAT 100
--- NOTE | 2018-10-31 19:30 | ED.DCSUM_ITS ---
- ER Visit Summary Date of Service: 10/31/18 Chief Complaint: Right foot pain History of Present Illness: The patient is a [address] Peraza. Family reports that her right small toe began to become purple approximately 3 weeks ago. They went to the wound center today and were sent to the emerge department for evaluation. Patient complains of a sharp pain Zeta 10 severity when she touches it. She relieved by rest. It is currently 8 out of 10 severity. On review of systems patient complains of nausea and a headache. She denies any fever, chills, vomiting, abdominal pain, or other complaints. Physical Examination: Vitals: Stable. Afebrile. General: Well-nourished and well-developed. Head: Normocephalic atraumatic. Neck: Supple, no lymphadenopathy. No JVD. Nontender. Cardiovascular: Regular rate and rhythm. No murmurs. Respiratory: No respiratory distress. Clear to auscultation bilaterally. Abdominal: Soft, nontender, nondistended, normal bowel sounds. No guarding, rebound, or peritoneal signs. Back: Nontender. Extremities: There is dry gangrene of her right fifth toe. Her right fourth toe is purple as is the bottom of her foot over the distal portion of her fourth and fifth metatarsals in her toes. Her right great toe is mottled. There are 2 superficial ulcers on her left foot. One is over her great toe and one is over her second toe. There is no erythema or induration surrounding these. She has no palpable or dopplerable posterior tibial or dorsalis pedis pulses bilaterally. She has 2+ femoral pulses bilaterally. Skin: Normal color, no rash. Neurologic: Alert and oriented ?3. Cranial nerves II through XII are intact. Normal strength and sensation. Psych: Normal affect. Test Results: CBC shows a white count of 14.8 with an H&H of 9.5 and 29.9, segmented neutrophils of 88, and lymphocytes of 6. Chem-7 shows a sodium 133, BUN 27, creatinine 3.6, glucose 316. Lactic acid is normal. Clinical Impression(s) from Imaging Studies Foot X-Ray 10/31/18 18:10 IMPRESSION: Suspect osteomyelitis of the congenitally fused fifth middle and distal phalanges. Electronically Signed: Chris Frederick MD at 18:37 EDT Tel , Service support , Foot X-Ray 10/31/18 18:10 IMPRESSION: Normal x-ray examination of the foot. Electronically Signed: Chris Frederick MD at 18:36 EDT Tel , Service support , Emergency Department Course and Treatment: Patient was treated with morphine, Zofran, Zosyn, and vancomycin IV. She is resting comfortably. Treatment Plan: The patient was discussed with Dr. Echavarria. At this time it is felt that she would best be served by transfer to a tertiary care center where she could see a vascular surgeon prior to having amputation or further treatment of the osteomyelitis and gangrenous toe. Patient asked to go to [facility]. She was discussed with Dr. Weir who has accepted her in transfer. Disposition: Transferred in improved condition. Impression: 1. Gangrenous right fifth toe. 2. Osteomyelitis right fifth toe. 3. End-stage renal disease. This note was generated with [employer] software. It may contain incorrect words, spelling, and punctuation that were not noted in review of the chart prior to signing ED Disposition - Plan for ED Patient: Referrals: Felice Peraza [Primary Care Provider] -
[2018-10-31 19:41] VITALS: BP 97/56; PULSE 83; RESP 16; TEMP 36.5; O2SAT 100
[2018-10-31 20:02] VITALS: BP 116/58; PULSE 82; RESP 18; O2SAT 98
== END 2018-10-31 20:33 | disposition short-term general hospital (02) ==
LOC: ED 17:22
PROVIDERS: Emergency Provider Emergency Medicine; Family Provider Family Medicine; PCP Family Medicine
DX: E11.52 Type 2 diabetes mellitus with diabetic peripheral angiopathy with gangrene (principal); I96 Gangrene, not elsewhere classified; E11.22 Type 2 diabetes mellitus with diabetic chronic kidney disease; I13.2 Hypertensive heart and chronic kidney disease with heart failure and with stage 5 chronic kidney disease, or end stage renal disease; I50.9 Heart failure, unspecified; N18.6 End stage renal disease; R11.0 Nausea; R51 Headache; E11.621 Type 2 diabetes mellitus with foot ulcer; L97.529 Non-pressure chronic ulcer of other part of left foot with unspecified severity; F03.90 Unspecified dementia, unspecified severity, without behavioral disturbance, psychotic disturbance, mood disturbance, and anxiety; J44.9 Chronic obstructive pulmonary disease, unspecified; E03.9 Hypothyroidism, unspecified; I48.91 Unspecified atrial fibrillation; F41.9 Anxiety disorder, unspecified; Z95.0 Presence of cardiac pacemaker; Z79.4 Long term (current) use of insulin; Z79.01 Long term (current) use of anticoagulants; Z79.899 Other long term (current) drug therapy
CPT/HCPCS: 73630; 80048; 83605; 85025; 96361; 96365; 96367; 96374; 96375; 99285; J7030; J7040; A4216; J2405